=== PATIENT | female | born 2000 | race Caucasian/White ===

== ENCOUNTER 2025-03-20 21:23 | Emergency (ER) | payer MEDICAID, SELFPAY ==
[2025-03-20 21:24] VITALS: BP 125/85; PULSE 110; RESP 17; TEMP 36.7; O2SAT 98
[2025-03-20 21:25] VITALS: BMI 19.2
--- NOTE | 2025-03-20 21:32 | EKG_ITS ---
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
--- NOTE | 2025-03-20 22:05 | EDNOTE_ITS ---
<Statement entered by Hilda Sanderson MD - 03/21/25 04:48> As co-signing physician, I was present and available for consult prn. I concur with the plan and care as documented by the midlevel provider. ED Anxiety RME/HPI General Chief Complaint: Arrhythmia/Palpitations Stated Complaint: HEART RACING, ANXIETY, UNABLE TO SWALLOW SOLID Time Seen by Provider: 03/20/25 22:01 Arrival date/time: 03/20/25 21:23 25F with history of anxiety presents to ED with heart palps and anxiety, as well as difficulty swallowing solid foods for several days. Patient is fine drinking fluids. Patient denies fevers/chils, sore throat, and confusion. Patient states she was bit by a stray kitten about 1 week ago on the hand, but there was barely a christina so patient didn't have it followed-up. Patient has had some non-bloody diarrhea. Limitations: no limitations Related Data Allergies Allergy/AdvReac Type Severity Reaction Status Date / Time No Known Allergies Allergy Verified 03/20/25 21:25 Review of Systems Review of Systems Systems Reviewed: All systems reviewed, normal except as documented Constitutional Constitutional: Reports system reviewed and no additional complaints, except as documented, Denies fever(s) and Denies headache(s) ENT Ears, Nose, Mouth, and Throat: Reports as per HPI, Denies disequilibrium, Reports dysphagia and Denies headache(s) Cardiovascular Cardiovascular: Reports system reviewed and no additional complaints, except as documented, Reports as per HPI, Denies chest pain, Denies dyspnea and Reports palpitations Respiratory Respiratory: Reports system reviewed and no additional complaints, except as documented, Denies cough and Denies dyspnea Gastrointestinal Gastrointestinal: Reports system reviewed and no additional complaints, except as documented, Denies abdominal pain, Reports dysphagia, Denies nausea and Denies vomiting Neurologic Neurologic: Reports system reviewed and no additional complaints, except as documented, Denies confusion, Denies disequilibrium and Denies headache(s) Psychiatric Psychiatric: Reports as per HPI, Reports anxiety and Denies confusion Endocrine Endocrine: Reports palpitations Past Medical History Social History SMOKING STATUS: Never smoker ED Exam General Limitations: Present no limitations General appearance: Present alert, in no apparent distress and anxious (mild) Head Head exam: Present atraumatic Eye Eye exam: Present normal appearance, PERRL and EOMI ENT ENT exam: Present normal exam, normal oropharynx and mucous membranes moist Neck Neck exam: Present normal inspection, full ROM and trachea midline Chest Chest inspection: Present normal inspection and symmetric chest wall rise Respiratory Respiratory exam: Present normal lung sounds bilaterally Cardiovascular Cardiovascular exam: Present regular rate, normal rhythm and normal heart sounds Abdominal Exam Abdominal exam: Present soft and normal bowel sounds Extremities Exam Extremities exam: Present normal inspection and full ROM Back Exam Back exam: Present normal inspection and full ROM Neurological Exam Neurological exam: Present alert, oriented X3 and CN II-XII intact Psychiatric Psychiatric exam: Present normal affect and normal mood Skin Skin exam: Present warm, dry, intact and normal color Course Quality Measures none Orders Category Date Time Status EKG (ED ONLY) *Do not use* NOW Care 03/20/25 21:32 Completed EKG (ED Only) Stat Exams 03/20/25 21:32 Draft Vital Signs Vital signs: Vital Signs Temperature 98.0 F 03/20/25 21:24 Pulse Rate 110 H 03/20/25 21:24 Respiratory Rate 17 03/20/25 21:24 Blood Pressure 125/85 H 03/20/25 21:24 Pulse Oximetry (%) 98 03/20/25 21:24 Oxygen Delivery Method Room Air 03/20/25 21:24 Anxiety MDM Narrative MDM Narrative: 25F with history of anxiety presents to ED with heart palps and anxiety, as well as difficulty swallowing solid foods for several days. Patient is fine drinking fluids. Patient denies fevers/chils, sore throat, and confusion. Patient states she was bit by a stray kitten about 1 week ago on the hand, but there was barely a christina so patient didn't have it followed-up. Patient has had some non-bloody diarrhea. Physical exam reveals no obvious bite christina on fingers. Speech normal. Gait normal. Clear lungs. Normal WOB. RRR. Patient is afebrile, alert, but mildly anxious. Patient is reading something on her phone. EKG is NSR. Likely combo of mild gastroenteritis exacerbated by anxiety. Too e vito for rabies. Patient passed PO challenge. Patient data External records reviewed:: [facility] previous records Clinical information provided by:: patient Social determinants that could affect healthcare access:: none Patient has the following chronic illnesses:: none How is presenting disease/condition affected by chronic disease/condition?: no chronic disease Evaluation data The following diagnostics were reviewed and interpreted by me:: EKG tracing(s) Lab and/or radiology exams considered but not ordered:: ordered Interpretation Summary: above Medications / Prescriptions Medications or Prescriptions considered but not ordered:: not ordered Medication administrations:: n/a Consultations Consultation(s) initiated? (list below): No Diagnosis Differential diagnosis anxiety: hyperventilation, panic disorder, acute anxiety and other (gastroenteritis) Most likely diagnosis given after review of the tests above:: gastroenteritis, anxiety Admission Indicated Admission indicated?: not indicated Admission Request Was there a request for admission?: No Disposition Plan Disposition Plan: Discharge Discharge Attestation Discharge Attestation: The patient and all family members were given an opportunity to ask questions and understood the discharge instructions. Discharge instructions specifically effects, indications for sooner follow up or return to the emergency department, and the expected course of current diagnosis. Patient condition: Stable Discharge Plan Plan Patient Disposition: HOME (Self Care) Discharge Disposition comment: Stable Problem List Clinical Impression: Anxiety, Gastroenteritis Patient/Caregiver Discharge Instructions Education Materials: Your Body's Response to Anxiety Additional Instructions: Please follow-up with PCP within 24-48 hours and return immediately if symptoms worsen. Print Language: Upper Sorbian Stand Alone Forms: Patient Portal Info Letter COLLIN/SIDNEY Supervising Physician MARINA Supervising Physician: Dr. Sanderson
== END 2025-03-20 23:38 | disposition home or self-care (01) ==
LOC: SERX 22:06
PROVIDERS: Emergency Provider Emergency Medicine
DX: F41.9 Anxiety disorder, unspecified (principal); K52.9 Noninfective gastroenteritis and colitis, unspecified; R94.31 Abnormal electrocardiogram [ECG] [EKG]
CPT/HCPCS: 93005; 99283

== ENCOUNTER 2025-03-22 10:34 | Emergency (ER) | payer MEDICAID, SELFPAY ==
[2025-03-22 10:50] VITALS: BP 117/78; PULSE 73; RESP 16; TEMP 37.2; O2SAT 97; BMI 19.2
[2025-03-22 11:28] LABS: Basophils # (Auto) 0.1 Thou/mm3 (0.0-0.2); Basophils % (Auto) 1 % (0-2.5); Eosinophils # (Auto) 0.2 Thou/mm3 (0.0-0.5); Eosinophils % (Auto) 3 % (0-10); Hematocrit 39.0 % (36.0-46.0); Hemoglobin 13.9 g/dL (12.0-16.0); Immature Granulocytes Auto 0.01 Thou/mm3 (0.00-0.00); Lymphocytes # (Auto) 1.9 Thou/mm3 (1.0-4.8); Lymphocytes % (Auto) 29 % (10-50); Mean Corpuscular HGB Conc 35.6 g/dl (31.0-37.0); Mean Corpuscular Hemoglobin 32.0 pg (25.0-35.0); Mean Corpuscular Volume 90 fL (80-100); Monocytes # (Auto) 0.4 Thou/mm3 (0.0-0.8); Monocytes % (Auto) 6 % (0-12); Neutrophils # (Auto) 4.2 Thou/mm3 (1.8-7.7); Neutrophils % (Auto) 62 % (37-80); Nucleated Red Blood Cell # 0.00 Thou/mm3 (0.00-0.00); Nucleated Red Blood Cell % 0 /100 WBC (0); Platelet Count 226 Thou/mm3 (140-440); RDW Standard Deviation 39.3 fL (36.4-46.3); Red Blood Count 4.35 Miln/mm3 (4.00-5.20); White Blood Count 6.7 Thou/mm3 (3.6-11.0)
[2025-03-22 11:47] LABS: Collection Type, Urine Clean Catch
[2025-03-22 11:50] LABS: Alanine Aminotransferase 11 U/L (10-49); Albumin, Serum 5.2 gm/dL (3.5-5.0); Albumin/Globulin Ratio 1.9 (1.2-2.2); Alkaline Phosphatase 53 U/L (46-116); Anion Gap 11 (7-16); Aspartate Amino Transferase 19 U/L (0-34); BUN/Creatinine Ratio 8 Ratio (12-20); Bilirubin,Total 0.8 mg/dL (0.3-1.2); Blood Urea Nitrogen 6 mg/dL (9-23); Calcium 9.8 mg/dL (8.3-10.6); Calcium (Corrected) 9.8 mg/dL (8.5-10.1); Carbon Dioxide 24.5 mMol/L (20.0-31.0); Chloride 106 mMol/L (98-107); Creatinine (Component) 0.8 mg/dL (0.6-1.3); Estimated Creatinine Clearance 84.7 mL/min (>60); Free T4 (Free Thyroxine) 1.46 ng/dL (0.89-1.76); Globulin 2.8 gm/dL (2.3-3.5); Glucose 100 mg/dL (74-106); Osmolality,Calculated 278 (275-295); Potassium 3.2 mMol/L (3.4-5.1); Sodium 141 mMol/L (136-145); Thyroid Stimulating Hormone 1.01 uIU/mL (0.55-4.78); Total Protein 8.0 gm/dL (5.7-8.2); eGFR > 60 See Note
[2025-03-22 12:02] LABS: HCG Qualitative,Urine Negative
[2025-03-22 12:05] LABS: Amorphous Crystals,Urine Present (Absent); Bacteria,Urine Rare; Bilirubin,Urine Negative (Negative); Blood,Urine 1+ (Negative); Clarity,Urine Turbid (Clear/Hazy); Color,Urine Yellow (Lt Yel-Yel); Culture Indicated,Urine Not Indicated; Glucose, Urine Negative (Negative); Ketones,Urine 1+ (Negative); Leukocyte Esterase,Urine Positive (Negative); Nitrite,Urine Negative (Negative); PH,Urine 7.5 (5.0-7.0); Protein,Urine Trace (Neg - Trace); RBC,Urine 4 /hpf (0-3); Specific Gravity,Urine 1.027 (1.001-1.035); Squamous Epithelial Cell,Urine 14 /hpf (0-5); Urobilinogen,Urine 2.0 mg/dL (0.0-1.0); WBC,Urine 4 /hpf (0-5)
--- NOTE | 2025-03-22 12:32 | EDNOTE_ITS ---
ED Anxiety RME/HPI General Chief Complaint: Anxiety Stated Complaint: drinks water, fingers go numb Time Seen by Provider: 03/22/25 10:37 Arrival date/time: 03/22/25 10:34 25-year-old female presents emergency department today stating that she drinks water and her fingers go numb patient reports that been on for the last couple of days. Patient ports no fever nausea or vomiting no chest pain or shortness of breath Limitations: no limitations Related Data Allergies Allergy/AdvReac Type Severity Reaction Status Date / Time No Known Allergies Allergy Verified 03/22/25 10:38 Review of Systems Review of Systems Systems Reviewed: All systems reviewed, normal except as documented Constitutional Constitutional: Reports system reviewed and no additional complaints, except as documented, Denies fever(s) and Denies headache(s) Eyes Eyes: Reports system reviewed and no additional complaints, except as documented and Denies blurry vision ENT Ears, Nose, Mouth, and Throat: Reports system reviewed and no additional complaints, except as documented, Denies headache(s), Denies nasal congestion and Denies nasal discharge Cardiovascular Cardiovascular: Reports system reviewed and no additional complaints, except as documented, Denies chest pain and Denies dyspnea Respiratory Respiratory: Reports system reviewed and no additional complaints, except as documented, Denies chest congestion, Denies cough and Denies dyspnea Gastrointestinal Gastrointestinal: Reports system reviewed and no additional complaints, except as documented and Denies abdominal pain Integumentary/Breasts Skin/Breast: Reports system reviewed and no additional complaints, except as documented and Denies rash Neurologic Neurologic: Reports system reviewed and no additional complaints, except as documented, Reports as per HPI and Denies headache(s) Psychiatric Psychiatric: Reports system reviewed and no additional complaints, except as documented, Reports anxiety, Denies homicidal ideation and Denies suicidal ideation Past Medical History Social History SMOKING STATUS: Current every day smoker ED Exam General Limitations: Present no limitations General appearance: Present alert and in no apparent distress Head Head exam: Present atraumatic Eye Eye exam: Present normal appearance, PERRL and EOMI ENT ENT exam: Present normal exam, normal oropharynx and mucous membranes moist Neck Neck exam: Present normal inspection, full ROM and trachea midline Chest Chest inspection: Present normal inspection and symmetric chest wall rise Respiratory Respiratory exam: Present normal lung sounds bilaterally Cardiovascular Cardiovascular exam: Present regular rate, normal rhythm and normal heart sounds Abdominal Exam Abdominal exam: Present soft and normal bowel sounds Extremities Exam Extremities exam: Present normal inspection and full ROM Back Exam Back exam: Present normal inspection and full ROM Neurological Exam Neurological exam: Present alert, oriented X3 and CN II-XII intact Psychiatric Psychiatric exam: Present normal affect and normal mood Skin Skin exam: Present warm, dry, intact and normal color Course Quality Measures none Orders Category Date Time Status CBC Stat Lab 03/22/25 11:03 Completed Comprehensive Metabolic Panel Stat Lab 03/22/25 11:03 Completed Drug Screen,Urine Stat Lab 03/22/25 11:33 Received Free T4 (Free Thyroxine) Stat Lab 03/22/25 11:03 Completed HCG Qualitative,Urine Stat Lab 03/22/25 11:40 Completed TSH [Thyroid Stimulating Hormone] Stat Lab 03/22/25 11:03 Completed UA, C/S IF [Urinalysis, C/S if Indicated] Stat Lab 03/22/25 11:40 Completed Vital Signs Vital signs: Vital Signs Temperature 98.9 F 03/22/25 10:50 Pulse Rate 73 03/22/25 10:50 Respiratory Rate 16 03/22/25 10:50 Blood Pressure 117/78 03/22/25 10:50 Pulse Oximetry (%) 97 03/22/25 10:50 Oxygen Delivery Method Room Air 03/22/25 10:50 O2 saturation 97% on room air within normal limits Anxiety MDM Narrative MDM Narrative: 25-year-old female presents emergency department today stating that she drinks water and her fingers go numb patient reports that been on for the last couple of days. Patient ports no fever nausea or vomiting no chest pain or shortness of breath Clinically and based on exam symptoms are highly consistent with anxiety patient will like lab work Patient has no abnormal neurological findings patient walks with steady gait no nystagmus no neck pain Lab work obtained patient with mild hypokalemia otherwise labs unremarkable patient replaced with 40 mEq of potassium Patient discharged home in no distress to follow-up with primary care doctor in the next 24 to 48 hours and for any worsening symptoms to return to the ER immediately Patient data External records reviewed:: [facility] previous records Clinical information provided by:: patient Social determinants that could affect healthcare access:: none Patient has the following chronic illnesses:: None How is presenting disease/condition affected by chronic disease/condition?: no chronic disease Evaluation data The following diagnostics were reviewed and interpreted by me:: lab results Lab and/or radiology exams considered but not ordered:: Labs obtained Interpretation Summary: Reviewed by me Medications / Prescriptions Medications or Prescriptions considered but not ordered:: Given Medication administrations:: Given Consultations Consultation(s) initiated? (list below): No Diagnosis Differential diagnosis anxiety: hyperventilation, panic disorder and acute anxiety Most likely diagnosis given after review of the tests above:: Anxiety Admission Indicated Admission indicated?: not indicated Admission Request Was there a request for admission?: No Disposition Plan Disposition Plan: Discharge Discharge Attestation Discharge Attestation: The patient and all family members were given an opportunity to ask questions and understood the discharge instructions. Discharge instructions specifically effects, indications for sooner follow up or return to the emergency department, and the expected course of current diagnosis. Patient condition: Stable Discharge Plan Plan Patient Disposition: HOME (Self Care) Discharge Disposition comment: Stable Prescriptions/Referrals Referrals: No Primary/Family,Physician [Primary Care Provider] - 03/23/25 Problem List Clinical Impression: Hypokalemia, Paresthesias Patient/Caregiver Discharge Instructions Education Materials: ED Paraesthesias Additional Instructions: Please follow up with your primary care doctor in the next 24-48hrs for any worsening symptoms return here immediately Print Language: Croatian Stand Alone Forms: [employer] Award Info., Work/School Release, Patient Portal Info Letter PA/SIDNEY Supervising Physician COLLIN/SIDNEY Supervising Physician: dr kasper
[2025-03-22 14:00] LABS: Amphetamine/Methamp Scrn,U Negative (Negative); Barbiturate Screen,Urine Negative (Negative); Benzodiazepines Screen,Urine Negative (Negative); Benzoylecgonine Screen, Ur Negative (Negative); Fentanyl Screen,Urine Negative (Negative); Opiate Screen,Urine Negative (Negative); THC Screen,Urine Positive (Negative)
== END 2025-03-22 13:45 | disposition home or self-care (01) ==
PROVIDERS: Nurse Practitioner Primary Care; Emergency Provider Emergency Medicine
DX: E87.6 Hypokalemia (principal); R20.2 Paresthesia of skin
CPT/HCPCS: 36415; 80053; 80307; 81001; 81025; 84439; 84443; 85025; 99282; A9270

== ENCOUNTER 2025-06-07 10:40 | Emergency (ER) | payer MEDICAID, SELFPAY ==
[2025-06-07 10:41] VITALS: BMI 19.7
[2025-06-07 10:50] VITALS: BP 116/63; PULSE 76; RESP 19; TEMP 36.4; O2SAT 95
[2025-06-07] MEDS: LIDOCAINE HCL 1% 20 ML VIAL INFL (11:04)
[2025-06-07] MEDS: IBUPROFEN TAB 600 MG TABLET PO (11:04)
[2025-06-07] MEDS: DIPHTH,PERTUSS(ACELL),TET VAC 0.5 ML SYR- ADULT IMi (11:05)
--- NOTE | 2025-06-07 11:51 | PD.EDHAND ---
Upper Extremity Injury RME/HPI General Chief Complaint: Hand/Wrist Problems Stated Complaint: LEFT HAND LAC WITH KNIFE Time Seen by Provider: 06/07/25 10:41 Arrival date/time: 06/07/25 10:40 25-year-old female presents to the Emergency Department for complaints of laceration of the left hand patient obtained a laceration to her thumb and her index finger Limitations: no limitations Related Data Allergies Allergy/AdvReac Type Severity Reaction Status Date / Time No Known Allergies Allergy Verified 06/07/25 10:42 Review of Systems Review of Systems Systems Reviewed: All systems reviewed, normal except as documented Constitutional Constitutional: Reports system reviewed and no additional complaints, except as documented, Denies fever(s) and Denies headache(s) Eyes Eyes: Reports system reviewed and no additional complaints, except as documented and Denies blurry vision ENT Ears, Nose, Mouth, and Throat: Reports system reviewed and no additional complaints, except as documented, Denies headache(s), Denies nasal congestion and Denies nasal discharge Cardiovascular Cardiovascular: Reports system reviewed and no additional complaints, except as documented, Denies chest pain and Denies dyspnea Respiratory Respiratory: Reports system reviewed and no additional complaints, except as documented, Denies chest congestion, Denies cough and Denies dyspnea Gastrointestinal Gastrointestinal: Reports system reviewed and no additional complaints, except as documented and Denies abdominal pain Integumentary/Breasts Skin/Breast: Reports system reviewed and no additional complaints, except as documented, Denies rash and Reports wounds (Laceration left hand) Neurologic Neurologic: Reports system reviewed and no additional complaints, except as documented, Reports as per HPI and Denies headache(s) Past Medical History Social History SMOKING STATUS: Never smoker ED Exam General Limitations: Present no limitations General appearance: Present alert and in no apparent distress Head Head exam: Present atraumatic Eye Eye exam: Present normal appearance, PERRL and EOMI ENT ENT exam: Present normal exam, normal oropharynx and mucous membranes moist Neck Neck exam: Present normal inspection, full ROM and trachea midline Chest Chest inspection: Present normal inspection and symmetric chest wall rise Respiratory Respiratory exam: Present normal lung sounds bilaterally Cardiovascular Cardiovascular exam: Present regular rate, normal rhythm and normal heart sounds Abdominal Exam Abdominal exam: Present soft and normal bowel sounds Extremities Exam Extremities exam: Present full ROM, tenderness, normal capillary refill and other (Laceration left hand) Back Exam Back exam: Present normal inspection and full ROM Neurological Exam Neurological exam: Present alert, oriented X3 and CN II-XII intact Psychiatric Psychiatric exam: Present normal affect and normal mood Skin Skin exam: Present warm, dry and other (Laceration left hand) Course Quality Measures none Orders Category Date Time Status Set Up Suture Tray STAT Care 06/07/25 10:51 Completed Wound Care NOW Care 06/07/25 10:51 Completed Ibuprofen Tab [Motrin Tab] Med 06/07/25 10:51 Discontinued 600 mg PO X1 ONE Lidocaine 1% 20 ml [Xylocaine 1% 20 ML] Med 06/07/25 10:51 Discontinued 20 ml INFL X1 ONE TET,DIP/PERT AC (Adult)-Tdap [Boostrix Adult (Tdap) Med 06/07/25 10:51 Discontinued Vacc] 0.5 ml IMI .ONCE ONE Vital Signs Vital signs: Vital Signs Temperature 97.5 F 06/07/25 10:50 Pulse Rate 76 06/07/25 10:50 Respiratory Rate 19 06/07/25 10:50 Blood Pressure 116/63 06/07/25 10:50 Pulse Oximetry (%) 95 06/07/25 10:50 Oxygen Delivery Method Room Air 06/07/25 10:50 O2 saturation 95% room air with normal limits PROCEDURES: Laceration Laceration 1: Site: hand Side (If applicable): left Size (cm): 3 Description: linear Depth: simple, single layer Local Anesthetic: lidocaine 1% Amount of anesthesia used (mL): 8 Pre-repair: wound explored Skin layer closed with: nylon Suture size (cm): 5-0 Number of sutures: 5 Technique: simple, interrupted Extremity Injury MDM Narrative [facility] Narrative:: 25-year-old female presents to the Emergency Department for complaints of laceration of the left hand patient obtained a laceration to her thumb and her index finger On exam patient well-appearing patient does not appear ill or toxic no acute distress Wound irrigated copiously laceration pair with total of 5sutures Patient is open does have tender ligamentous injury patient moves all fingers without difficulty Patient discharged home in no distress to follow-up with primary care doctor in the next 24 to 48 hours and for any worsening symptoms to return to the ER immediately Patient data External records reviewed:: [facility] previous records Clinical information provided by:: patient Social determinants that could affect healthcare access:: none Patient has the following chronic illnesses:: None How is presenting disease/condition affected by chronic disease/condition?: no chronic disease Evaluation data The following diagnostics were reviewed and interpreted by me:: other (specify) Lab and/or radiology exams considered but not ordered:: Considered not ordered Interpretation Summary: N/A Medications / Prescriptions Medications or Prescriptions considered but not ordered:: Given Medication administrations:: Medication Administration History Discontinued Medications Diphtheria/Tetanus/Acell Pertussis (Diphth,Pertuss(Acell),Tet Vac 0.5 Ml Syr- Adult) 0.5 ml IMi .ONCE ONE Stop: 06/07/25 10:52 Last Admin: 06/07/25 11:05 Dose: 0.5 ml Documented By: Ibuprofen (Ibuprofen Tab 600 Mg Tablet) 600 mg PO X1 ONE Stop: 06/07/25 10:52 Last Admin: 06/07/25 11:04 Dose: 600 mg Documented By: Lidocaine HCl (Lidocaine Hcl 1% 20 Ml Vial) 20 ml INFL X1 ONE Stop: 06/07/25 10:52 Last Admin: 06/07/25 11:04 Dose: 20 ml Documented By: Given Consultations Consultation(s) initiated? (list below): No Diagnosis Upper Extremity Injury Differential Diagnosis: other Most likely diagnosis given after review of the tests above:: Laceration Admission Indicated Admission indicated?: not indicated Admission Request Was there a request for admission?: No Disposition Plan Disposition Plan: Discharge Discharge Attestation Discharge Attestation: The patient and all family members were given an opportunity to ask questions and understood the discharge instructions. Discharge instructions specifically effects, indications for sooner follow up or return to the emergency department, and the expected course of current diagnosis. Patient condition: Stable Discharge Plan Plan Patient Disposition: HOME (Self Care) Discharge Disposition comment: Stable Prescriptions/Referrals Referrals: Be Ruffin MD [Primary Care Provider, Family Practice] - In 1 week Problem List Clinical Impression: Laceration of left hand Patient/Caregiver Discharge Instructions Education Materials: ED Laceration: All Closures Additional Instructions: Please follow up with your primary care doctor in the next 24-48hrs for any worsening symptoms return here immediately Please have suture removed in 10 days Print Language: Malawian Stand Alone Forms: [employer] Award Info., Work/School Release, Patient Portal Info Letter Vaccines Vaccines Given During Stay: TDaP PA/WELL PULLER Supervising Physician PA/WELL PULLER Supervising Physician: Dr. Guevara
== END 2025-06-07 12:01 | disposition home or self-care (01) ==
PROVIDERS: Emergency Provider Nurse Practitioner Primary Care; PCP Family Medicine
DX: S61.211A Laceration without foreign body of left index finger without damage to nail, initial encounter (principal); S61.012A Laceration without foreign body of left thumb without damage to nail, initial encounter; W26.0XXA Contact with knife, initial encounter; Z23 Encounter for immunization
CPT/HCPCS: 12002; 90471; 90715; 99284; J3490; A9270

== ENCOUNTER 2025-06-17 11:41 | Emergency (ER) | payer MEDICAID, SELFPAY ==
[2025-06-17 12:13] VITALS: BMI 18.3
[2025-06-17 12:14] VITALS: BP 118/74; PULSE 76; RESP 17; TEMP 36.9; O2SAT 99
--- NOTE | 2025-06-17 12:29 | EDNOTE_ITS ---
<Statement entered by Hilda Sanderson MD - 07/01/25 14:19> As co-signing physician, I was present and available for consult prn. I concur with the plan and care as documented by the midlevel provider. ED Wound/Laceration-RME/HPI General Chief Complaint: Wound Recheck / Suture Removal Stated Complaint: STITCH REMOVAL LEFT HAND Time Seen by Provider: 06/17/25 12:13 Arrival date/time: 06/17/25 11:41 This is 25-year-old female presents to the Emergency Department for complaints of laceration of the left hand/thumb. Patient had sutures placed approximately 10 days ago and here to have sutures removed. Wound appears well-approximated no infection noted. Related Data Allergies Allergy/AdvReac Type Severity Reaction Status Date / Time No Known Allergies Allergy Verified 06/17/25 11:44 Review of Systems Review of Systems Systems Reviewed: All systems reviewed, normal except as documented Past Medical History Social History SMOKING STATUS: Never smoker ED Exam Narrative Physical exam: VITAL SIGNS: Reviewed. GENERAL APPEARANCE: Alert and interactive, follows commands, no acute distress HEAD AND FACE: Non-traumatic. ENT: PERRL, conjuctiva pink and clear, eyelid no trauma, Mucous membrane moist. NECK: Supple, nontender, no nuchal rigidity. CHEST: No tenderness, no crepitus, no paradoxical movement, no retractions. LUNGS: breathing even and unlabored HEART: Regular rate, cap refill less than 2 seconds ABDOMEN: Soft, nondistended, no guarding, nontender, no rebound, no masses, NEUROLOGICAL: Gross motor function intact sensory function intact, Appropriate for age. MUSCULOSKELETAL: low back nontender, full range of motion. no midline tenderness, no meningismus, no step offs EXTREMITIES: No redness no swelling no skin breakdown on bilateral foot and leg. Distal neurovascular status intact bilateral foot SKIN: Color pink, dry, wound to left hand looks well-approximated Course Quality Measures none Vital Signs Vital signs: Vital Signs Temperature 98.4 F 06/17/25 12:14 Pulse Rate 76 06/17/25 12:14 Respiratory Rate 17 06/17/25 12:14 Blood Pressure 118/74 06/17/25 12:14 Pulse Oximetry (%) 99 06/17/25 12:14 Oxygen Delivery Method Room Air 06/17/25 12:14 Wound / Laceration MDM Narrative MDM Narrative:: 5 Sutures removed. Wound looks well-approximated. No signs and symptoms of infection. Patient tolerated procedure well. Patient will discharge home. Patient told to come back to emergency room if symptoms change or worsen. Patient data External records reviewed:: [facility] previous records Clinical information provided by:: patient Social determinants that could affect healthcare access:: none Patient has the following chronic illnesses:: None How is presenting disease/condition affected by chronic disease/condition?: no chronic disease Evaluation data The following diagnostics were reviewed and interpreted by me:: other (specify) (None) Lab and/or radiology exams considered but not ordered:: None Interpretation Summary: See note Medications / Prescriptions Medications or Prescriptions considered but not ordered:: None Medication administrations:: See note Consultations Consultation(s) initiated? (list below): No Diagnosis Wound Differential Diagnosis: laceration, abscess, abrasion, avulsion of skin and other Most likely diagnosis given after review of the tests above:: Well-approximated wound removal of sutures. Admission Indicated Admission indicated?: not indicated Admission Request Was there a request for admission?: No Disposition Plan Disposition Plan: Discharge Discharge Attestation Discharge Attestation: The patient and all family members were given an opportunity to ask questions and understood the discharge instructions. Discharge instructions specifically effects, indications for sooner follow up or return to the emergency department, and the expected course of current diagnosis. Patient condition: Stable Discharge Plan Plan Patient Disposition: HOME (Self Care) Patient condition on transfer: Stable Problem List Clinical Impression: Encounter for removal of sutures Patient/Caregiver Discharge Instructions Discharge Activity: activity as tolerated Education Materials: ED Stitches/Staple Removal No ... Additional Instructions: Follow up with primary provider in 1-2 days. Come back to ED if symptoms change or worsen Print Language: Sudanese Stand Alone Forms: [facility] Award Info., Patient Portal Info Letter COLLIN/SIDNEY Supervising Physician COLLIN/SIDNEY Supervising Physician: [place]
== END 2025-06-17 13:20 | disposition home or self-care (01) ==
LOC: SERX 13:12
PROVIDERS: Emergency Provider Emergency Medicine
DX: Z48.02 Encounter for removal of sutures (principal)
CPT/HCPCS: 99281